=== PATIENT | male | born 1960 | race Two or more races ===

== ENCOUNTER 2024-04-27 08:28 | Day surgery (SDC) | payer OTHER ==
[2024-04-18 12:15] VITALS: BP 130/90
[~2024-04-27] VITALS: Ht 188 cm; Wt 103.4 kg
[~2024-04-27 08:28] MED LIST: COZAAR100 MG PO; GLIMEPIRIDE4 M1 PO; GLUMETZA500 MG PO
[2024-04-27] MEDS ORDERED: CEFTRIAXONE SODIUM 2,000 MG VIAL IV ONE (12:45)
[2024-04-27] MEDS ORDERED: METRONIDAZOLE/SODIUM CHLORIDE 500 MG/100 ML PIGGYBACK IV ONE (12:45)
[2024-04-27] MEDS ORDERED: POVIDONE-IODINE 118 ML BOTT TOP ONE (12:45)
== END 2024-04-27 17:50 | disposition home or self-care (01) ==
LOC: CIR.AMB 08:28
PROVIDERS: ATTEND Colon & Rectal Surgery
DX: K60.1 Chronic anal fissure (principal); I10 Essential (primary) hypertension; G47.30 Sleep apnea, unspecified; J44.9 Chronic obstructive pulmonary disease, unspecified